=== PATIENT | male | born 1945 | race Caucasian/White ===

== ENCOUNTER 2019-04-19 10:44 | Day surgery (SDC) | payer BC ==
[~2019-04-19] VITALS: Ht 177.8 cm; Wt 87.5 kg
[~2019-04-19 10:44] MED LIST: ASPIR-LOW81 M1 PO; CAT0.1 PO; CLONIDINE0.1 M1 PO; HYD25 PO; HYDROCHLOROTHIA25 MG PO; KEFLEX500 MG PO; LOT20 PO; LOTENSIN40 MG PO; NAFCILLIN2 G/100 ML IV
[2019-04-19 11:01] VITALS: BP 150/57
[2019-04-19 16:42] VITALS: BP 130/85
== END 2019-04-19 16:35 | disposition home or self-care (01) ==
LOC: DS 10:44 → OR 13:00 → DS 13:00 → OR 13:30 → DS 16:35
DX: K40.90 Unilateral inguinal hernia, without obstruction or gangrene, not specified as recurrent (principal); I10 Essential (primary) hypertension; E66.01 Morbid (severe) obesity due to excess calories; Z98.890 Other specified postprocedural states; Z96.653 Presence of artificial knee joint, bilateral; Z79.899 Other long term (current) drug therapy; Z68.28 Body mass index [BMI] 28.0-28.9, adult
CPT/HCPCS: C1781; J0330; J0690; J2250; J2405; J2704; J3010; J3490; J7120